=== PATIENT | female | born 1965 | race Two or more races ===

== ENCOUNTER → 2024-01-11 | Outpatient (CLI) | payer MEDICAID | END | disposition home or self-care (01) | LOC: Rad HDHVI 15:09 | PROVIDERS: ATTEND Internal Medicine Cardiovascular Disease | DX: R00.1 Bradycardia, unspecified (principal); R06.02 Shortness of breath | CPT/HCPCS: 93306 ==

== ENCOUNTER → 2024-03-06 | Outpatient (CLI) | payer MEDICAID ==
[~2024-03-06] VITALS: Ht 157.5 cm; Wt 81.6 kg
== END | disposition home or self-care (01) ==
LOC: Rad HDHVI 08:16
PROVIDERS: ATTEND Internal Medicine Cardiovascular Disease
DX: I11.0 Hypertensive heart disease with heart failure (principal); I50.33 Acute on chronic diastolic (congestive) heart failure; R00.1 Bradycardia, unspecified; E78.5 Hyperlipidemia, unspecified; R06.02 Shortness of breath; R60.9 Edema, unspecified
CPT/HCPCS: 78452; 93017; 96374; A9500